=== PATIENT | female | born 1950 | race Caucasian/White ===

== ENCOUNTER 2022-07-15 11:26 | Day surgery (SDC) | payer OTHER ==
[~2022-07-15] VITALS: Ht 162.6 cm; Wt 65.8 kg
[2022-07-15] MEDS ORDERED: fentaNYL citrate 0.05 MG/ML VIAL ONE (11:52)
[2022-07-15] MEDS ORDERED: LIDOCAINE 2% 100 MG/5 ML UJET TP ONE (11:53)
[2022-07-15] MEDS ORDERED: fentaNYL citrate 0.05 MG/ML VIAL IVP ONE (13:05)
== END 2022-07-15 13:45 | disposition home or self-care (01) ==
LOC: MDS 11:26 → MMU 11:26 → MDS 13:45
PROVIDERS: ATTEND Internal Medicine Gastroenterology
DX: K59.00 Constipation, unspecified (principal); K63.5 Polyp of colon; I10 Essential (primary) hypertension; E03.9 Hypothyroidism, unspecified; Z20.822 Contact with and (suspected) exposure to COVID-19; Z79.899 Other long term (current) drug therapy
CPT/HCPCS: 45385; 87426; J3010